=== PATIENT | male | born 1970 | race Caucasian/White ===

== ENCOUNTER 2024-03-24 11:06 | Outpatient (REF) | payer OTHER, SELFPAY ==
--- NOTE | ~2024-03-24 | MR_ITS ---
EXAMINATION: MR BRAIN WITHOUT CONTRAST CLINICAL INFORMATION: 54-year-old with multifactorial gait disorder. COMPARISON: None available. TECHNIQUE: MRI of the brain was obtained using routine sequences without contrast. FINDINGS: Brain Volume: Mild generalized diffuse brain parenchymal volume loss is noted with no definite disproportional regional predominance within the limitations of a quantitative assessment. Structural: No malformations. Brain and Meninges: DWI sequence demonstrates no restricted diffusion to suggest acute or subacute cerebral ischemia. The brain parenchyma is otherwise normal in morphology and signal intensity. Gradient refocused imaging demonstrates no abnormal susceptibility-weighted signal loss to suggest hemorrhage, hemosiderin staining or abnormal mineralization. No extra-axial fluid collections, space occupying process or mass effect are identified. Ventricles and Subarachnoid Spaces: There is mild third and lateral ventriculomegaly with the left lateral ventricle being larger than the right. No hydrocephalus. The subarachnoid spaces are consistent with volume loss. Orbital Structures: The visualized orbital structures are grossly unremarkable within the limitations of the study. Vascular: Signal voids are noted in the visualized major intracranial vessels. Osseous Structures, Sinuses/Mastoids, Extracranial Soft Tissues: There is mildly hypointense to marrow signal throughout the osseous structures, which is a nonspecific finding, but should be correlated for any history of chronic anemia or any other causes for red marrow hyperplasia. Recommend correlation with CBC with differential and the clinical history. There is trace anterolisthesis at C2-C3 and C3-C4 with anterior spondylosis at C3-C4 and posterior disc osteophyte complex at this level, with flattening of the ventral dural sac. Bilateral petrous apex cephaloceles are noted, which is a normal variant. There is some mucosal thickening in the maxillary sinuses, left more than right. Minor mucosal thickening in the ethmoid complex. Minimal retained secretions in the left mastoid. MR/MR head/brain wo con IMPRESSION: 1. Mild generalized diffuse brain parenchymal volume loss with no definite disproportional regional predominance within the limitations of a quantitative assessment. 2. No acute intracranial process. No evidence for infarction, hemorrhage, extra-axial fluid collection, space-occupying process, mass effect or hydrocephalus. 3. Mild maxillary and ethmoid sinus mucosal inflammatory changes. 4. Upper cervical degenerative changes. 5. Mildly hypointense to marrow signal throughout the osseous structures, which is a nonspecific finding, but should be correlated for any history of chronic anemia or any other causes for red marrow hyperplasia or infiltrative process. Recommend correlation with CBC with differential and the clinical history. Electronically signed by: Kendall St MD 04/13/2024 05:04 PM EDT RP
== END 2024-03-24 11:07 | disposition home or self-care (01) ==
LOC: HO.MRI 11:06
PROVIDERS: PCP Internal Medicine; Visit Provider Psychiatry & Neurology Neurology
DX: R26.89 Other abnormalities of gait and mobility (principal)
CPT/HCPCS: 70551